=== PATIENT | female | born 1955 | race Caucasian/White ===

== ENCOUNTER 2019-01-27 18:09 | Emergency (ER) | payer BC ==
--- NOTE | 2019-01-27 18:35 | ERPHSYRPT ---
- History of Present Illness Time Seen by Provider: 01/27/19 18:25 Source: patient Exam Limitations: no limitations Patient Subjective Stated Complaint: pt stated that she has hip pain that stated 2 weeks ago, pt states that she is on a estrogen cheri and MD stated that it may cause bone pain Triage Nursing Assessment: pt ambulated into ER, pt states 4/10 pain to the left hip, pt states that pain has been increasing for the past 2 weeks, pt foot presses good, hypertensive Physician History: 63 y/o white female presents with 2 week h/o left hip pain. pt has h/o bilat breast cancer. most recently, May 2018, mrm on left with post op xrt for positive margins. pt on estrogen cheri. pt denies injury. Timing/Duration: week(s) (2) Modifying Factors: Improves With: movement Associated Symptoms: denies symptoms Allergies/Adverse Reactions: cephalexin monohydrate [From Keflex] Allergy (Verified 01/27/19 18:30) ciprofloxacin [From Cipro] Allergy (Verified 01/27/19 18:30) ciprofloxacin HCl [From Cipro] Allergy (Verified 01/27/19 18:30) doxycycline Allergy (Verified 01/27/19 18:30) moxifloxacin HCl [From Avelox] Allergy (Verified 01/27/19 18:30) Penicillins Allergy (Verified 01/27/19 18:30) Home Medications: Anastrozole 1 mg PO DAILY 01/27/19 [History] Aspirin 81 mg PO DAILY 01/27/19 [History] Gemfibrozil 600 mg PO DAILY 01/27/19 [History] Insulin Degludec [Tresiba Flextouch U-100] 40 unit SQ HS 01/27/19 [History] Pravastatin Sodium 20 mg PO HS 01/27/19 [History] Hx Tetanus, Diphtheria Vaccination/Date Given: (unknown) Hx Influenza Vaccination/Date Given: Yes - Review of Systems Constitutional: No Symptoms Eyes: No Symptoms Ears, Nose, & Throat: No Symptoms Respiratory: No Symptoms Cardiac: No Symptoms Abdominal/Gastrointestinal: No Symptoms Genitourinary Symptoms: No Symptoms Musculoskeletal: Joint Pain (left hip) Skin: No Symptoms Neurological: No Symptoms Psychological: No Symptoms Endocrine: No Symptoms Hematologic/Lymphatic: No Symptoms Immunological/Allergic: No Symptoms All Other Systems: Reviewed and Negative - Past Medical History Pertinent Past Medical History: Yes Neurological History: No Pertinent History ENT History: Cataracts Cardiac History: High Cholesterol, Hypertension Respiratory History: No Pertinent History Endocrine Medical History: Diabetes Type II Musculoskeletal History: No Pertinent History GI Medical History: No Pertinent History History: No Pertinent History Psycho-Social History: No Pertinent History Female Reproductive Disorders: Breast Cancer - Past Surgical History Past Surgical History: Yes Neuro Surgical History: No Pertinent History Cardiac: No Pertinent History Respiratory: No Pertinent History Gastrointestinal: Cholecystectomy Genitourinary: No Pertinent History Musculoskeletal: No Pertinent History Female Surgical History: Hysterectomy Other Surgical History: breast cancer, mastectomy [place] - Social History Smoking Status: Never smoker Exposure to second hand smoke: Yes Drug Use: none Patient Lives Alone: Yes - Female History Hx Now: No - Nursing Vital Signs Nursing Vital Signs: Initial Vital Signs Temperature 98.0 F 01/27/19 18:16 Pulse Rate 77 01/27/19 18:16 Respiratory Rate 18 01/27/19 18:16 Blood Pressure 199/77 01/27/19 18:16 O2 Sat by Pulse Oximetry 96 01/27/19 18:16 Pain Scale Pain Intensity [Left Hip] 4 Pain Intensity 4 - Physical Exam General Appearance: mild distress, alert, anxiety Eye Exam: PERRL/EOMI, eyes nml inspection Ears, Nose, Throat Exam: normal ENT inspection, moist mucous membranes Neck Exam: normal inspection, non-tender, supple, full range of motion Respiratory Exam: airway intact, No chest tenderness, No respiratory distress Gastrointestinal/Abdomen Exam: No tenderness Pelvic Exam: not done Rectal Exam: not done Back Exam: normal inspection, normal range of motion, No CVA tenderness, No vertebral tenderness Extremity Exam: normal inspection, normal range of motion, pelvis stable Neurologic Exam: alert, oriented x 3, cooperative, 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 tested, normal mood/affect, nml cerebellar function, nml station & gait Skin Exam: normal color, warm, dry Lymphatic Exam: No adenopathy SpO2 Interpretation: normal SpO2: 96 O2 Delivery: Room Air - Course Nursing assessment & vital signs reviewed: Yes Ordered Tests: Active Orders 24 hr Category Date Time Status HIP UNI (2V) INCL PEL IF DONE Stat Exams 01/27/19 18:29 Taken Medication Summary Generic Name Dose Route Start Last Admin Trade Name Freq PRN Reason Stop Dose Admin Oxycodone/Acetaminophen 1 tab 01/27/19 19:07 Percocet Tablet 5/325mg PO 01/27/19 19:08 STAT STA Prednisone 10 mg 01/27/19 19:07 Deltasone 10 Mg PO 01/27/19 19:08 STAT ONE - Progress Progress: unchanged Progress Note: 01/27/19 19:08 xray pelvis and left hip-no acute fx or dislocation. no lytic lesions Counseled pt/family regarding: diagnosis, need for follow-up, rad results - Departure Departure Disposition: Home Clinical Impression: Left hip pain Condition: Stable Critical Care Time: No Referrals: ARIE HOLT [Primary Care Provider] - Additional Instructions: take medications as prescribed. follow up with prescribing physicians for further management Prescriptions: Oxycodone HCl/Acetaminophen [Percocet 5-325 mg Tablet] 1 each PO Q8H PRN PRN #9 tablet MDD 3 PRN Reason: Pain Prednisone 10 mg [Deltasone 10 mg] 10 mg PO BID #8 tablet
[2019-01-27] MEDS ORDERED: PERCOCET TABLET 5/325MG PO STA (19:07)
[2019-01-27] MEDS ORDERED: DELTASONE 10 MG PO ONE (19:07)
[2019-01-27] MEDS ORDERED: PERCOCET TABLET 5/325MG ONE (19:09)
[2019-01-27] MEDS ORDERED: DELTASONE 20 MG ONE (19:09)
[2019-01-27 19:18] VITALS: BP 173/94; PULSE 64; O2SAT 95
--- NOTE | 2019-01-28 15:46 | XRAY ---
Exam: Two-view left hip series from 01/27/2019. Comparison: None of the left hip. No known injury, left hip pain 2 weeks, history of breast cancer. Findings: AP and frog-leg lateral views of the left hip were obtained. I see no acute left hip fracture or dislocation. The left hip joint space appears fairly well-preserved. I do see some minimal spurring at the superior lateral and inferior medial margins of the left acetabulum. No abnormal periarticular soft tissue calcifications are seen about the left hip. I note a 6 mm focal sclerotic density near the base of the left femoral neck toward the greater trochanter side which I believe represents a small bone island. There is mild hypertrophic degenerative change at the lateral margin of the greater trochanter. No bone destruction is seen. The left pubic ring appears intact. There appears to be at least moderate osteoarthritis affecting the symphysis pubis manifested by vacuum phenomena, sclerosis on both sides of the symphysis pubis, and minimal subchondral cystic changes. The sacroiliac joints appear grossly unremarkable. Impression: 1. No acute fracture, dislocation, or bone destruction of the left hip is seen. 2. 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
== END 2019-01-27 19:28 | disposition home or self-care (01) ==
LOC: ED 18:09
DX: M25.552 Pain in left hip (principal)
CPT/HCPCS: 73502; 99283; A9270-GY